=== PATIENT | male | born 1975 | race Two or more races ===

== ENCOUNTER 2024-05-05 16:56 | Emergency (ER) | payer MEDICAID, OTHER ==
[~2024-05-05] VITALS: Ht 170.2 cm; Wt 104.5 kg
[2024-05-05] MEDS: ARTIFICIAL TEARS 15ml EACHEYE ONE (18:41)
[2024-05-05] MEDS: predniSONE 20 MG TAB PO ONE (18:41)
[2024-05-05] MEDS ORDERED: PRED10TA PO (19:34)
[2024-05-05] MEDS ORDERED: PRED20TA2 PO (19:34)
[2024-05-05 19:43] VITALS: BP 137/75; PULSE 65; RESP 18; TEMP 98.4; O2SAT 98
== END 2024-05-05 19:45 | disposition home or self-care (01) ==
LOC: ER 16:56
DX: G51.0 Bell's palsy (principal); E11.9 Type 2 diabetes mellitus without complications
CPT/HCPCS: 70450; 82962; 93005; 99284; J7512